=== PATIENT | male | born 1995 | race Native Hawaiian/Other Pacific Islander ===

== ENCOUNTER 2017-04-21 18:13 | Emergency (ER) | payer OTHER ==
[~2017-04-21] VITALS: Ht 170.2 cm; Wt 86.2 kg
[2017-04-21] MEDS ORDERED: LEVO-T150 MCG PO (18:29)
== END 2017-04-22 00:26 | disposition home or self-care (01) ==
LOC: ED 18:13
DX: E03.9 Hypothyroidism, unspecified (principal)
CPT/HCPCS: 36415; 84443; 99282